=== PATIENT | male | born 1950 | race Caucasian/White ===

== ENCOUNTER 2020-03-30 07:44 | Day surgery (SDC) | payer MEDICARE, OTHER ==
[~2020-03-30] VITALS: Ht 175.3 cm; Wt 113.4 kg
[~2020-03-30 07:44] MED LIST: ASPIR 8181 MG PO; LISINOPRIL-HCT1 EAC2 PO; ROSUVASTATIN CA40 MG PO; TOPROL XL50 MG PO; UNITHROID25 MCG PO
--- NOTE | 2020-03-30 09:53 | NUR ---
03/30/20 0953 Sheets,Lyudmila 0937 PT ARRIVED TO PACU ON 3L VIA NC, PT WAKES EASILY TO VERBAL STIMULI AND DENIES CONCERNS. VSS. RESP EVEN AND UNLABORED. PT ENCOURAGED TO PASS GAS.
--- NOTE | 2020-03-30 11:38 | OR ---
[facility] [address] [place], [place] [address] Signed DATE OF OPERATION: 03/30/2020 SURGEON: Eliezer Howe MD PREOPERATIVE DIAGNOSIS: Sister with colonic polyps at age 71. POSTOPERATIVE DIAGNOSES: 1. A 10 mm polyp mid right colon (snare). 2. A 7 mm polyp at 80 cm. 3. Minimal internal hemorrhoids. PROCEDURE: Colonoscopy, snare polypectomy and hot biopsy. ESTIMATED BLOOD LOSS: None. INDICATIONS: Neville is a 70-year-old gentleman, asked to see me for a followup colonoscopy. We know his sister had colonic polyps removed at age 71. Neville had a negative colonoscopy in 2008. He said he has no lower GI complaints currently. He uses psyllium seed to stay regular. I gave Neville a pamphlet on colonoscopy in the office. He understands the nature of the test along with its risks including, but not limited to gas bloating, crampy abdominal pain, bleeding, perforation requiring surgery, and missed diagnosis. He also understands the need for IV conscious sedation. He had expressed understanding and wished to proceed. DESCRIPTION OF PROCEDURE: Neville was taken into our endoscopy suite and placed in the left lateral decubitus position. He was given IV sedation with 6 mg of Versed and 100 mcg of fentanyl. A digital rectal exam was performed and he does have moderate indurated and enlarged prostate gland. The adult colonoscope was introduced, advanced all around into the cecum under direct visualization of camera without difficulty. His prep was good. We could see the ileocecal valve without difficulties. The scope was slowly withdrawn. The polyp in mid right colon required the snare to divide and suction through the scope. We did see another polyp back at 80 cm, which we removed and destroyed completely with hot biopsy forceps. We saw no diverticula. The rectum was unremarkable. Upon retroflexion of scope, he does have small internal hemorrhoid columns. After this, the gas was suctioned out and the colonoscope removed. Neville tolerated the procedure Electronically Signed By: ELIEZER HOWE MD 03/30/20 1138 PATIENT NAME: NEVILLE CELIS OPERATIVE REPORT DATE OF : 54 REPORT #: [id number] PHYSICIAN: ELIEZER HOWE MD PCP: GAGE JOHNSON DO REPORT IS CONFIDENTIAL AND NOT TO BE RELEASED WITHOUT AUTHORIZATION [address] [address] Signed quite well. RECOMMENDATIONS: I will see Neville back in my office in 7 to 14 days to review his results. Eliezer Howe MD ALB/MODL /[id number] cc: DO Eliezer Zaragoza MD Copies: GAGE JOHNSON ANDREW L MD ~ Electronically Signed By: ELIEZER HOWE MD 03/30/20 1138 PATIENT NAME: NEVILLE CELIS OPERATIVE REPORT DATE OF : 54 REPORT #: [id number] PHYSICIAN: ELIEZER HOWE MD PCP: GAGE JOHNSON DO REPORT IS CONFIDENTIAL AND NOT TO BE RELEASED WITHOUT AUTHORIZATION
--- NOTE | 2020-03-30 13:48 | NUR ---
PT SEEMS ALERT, ORIENTED AND WILL BE PICKED UP BY FRIEND. PT HAS HAD PREVIOUS SCOPES, SEEMS TO BE DEALING WITH PREP WELL. PT REQUESTED PRAYER
--- NOTE | 2020-03-31 15:43 | PATH ---
[facility] [address] [place], [place] [address] Signed SPECIMEN(S): A MID RIGHT POLYP SPECIMEN(S): B COLON POLYP AT 80 CM SPECIMEN SOURCE: A. MID RIGHT POLYP B. COLON POLYP AT 80 CM CLINICAL HISTORY: Follow up colonoscopy for family history polyps. Internal hemorrhoids and colon polyps. MICROSCOPIC DESCRIPTION: Histologic sections of all submitted blocks are examined by light microscopy. These findings, together with the gross examination, support the pathologic diagnosis. FINAL PATHOLOGIC DIAGNOSIS: A. Colon, mid right, polyp, polypectomy: - Fragments of tubular adenoma. - Negative for high-grade dysplasia or malignancy. B. Colon, polyp at 80 cm, polypectomy: - Colonic mucosa with mucosal lymphoid aggregates and significant cautery artifact. - Negative for dysplasia or malignancy. - See Comment. COMMENT: Regarding specimen B: Several additional deeper levels were examined. NAL:cml:C2NR GROSS DESCRIPTION: Two specimens are received in two containers, labeled "BD." A. The specimen, labeled "BD, polyp mid right colon," is received in formalin and consists of four kaye soft tissue fragments that measure 0.3 cm in greatest dimension. The specimen is entirely submitted in cassette (A1). B. The specimen, labeled "BD, 2," and designated on the requisition "colon polyp at 80 cm," is received in formalin and consists of one kaye-brown soft tissue fragment that measures 0.6 cm in greatest dimension. The specimen is entirely submitted in cassette (B1). AT (under the direct supervision of a pathologist) The Gross Description was prepared using a voice recognition system. The PATIENT NAME: NEVILLE CELIS PATHOLOGY DATE OF : 54 REPORT #: [id number] PHYSICIAN: KRYSTYNA BOND PCP: GAGE JOHNSON DO REPORT IS CONFIDENTIAL AND NOT TO BE RELEASED WITHOUT AUTHORIZATION [facility] [address] [place] [address] Signed report was reviewed for accuracy; however, sound-alike word errors, addition and/or deletions may occur. If there is any question about this report, please contact Client Services. PERFORMING LABORATORY: The technical component was [place] [address] ([employer] Estimator: Esther Cardozo MD; CLIA# [id number]). Professional interpretation was performed by [facility], [address] [place] [address] (CLIA# [id number]). Diagnostician: Angela Montes MD Pathologist Electronically Signed 03/31/2020 Copies: ~ PATIENT NAME: NEVILLE CELIS PATHOLOGY DATE OF : 54 REPORT #: [id number] PHYSICIAN: [facility] PCP: GAGE JOHNSON DO REPORT IS CONFIDENTIAL AND NOT TO BE RELEASED WITHOUT AUTHORIZATION
== END 2020-03-30 10:34 | disposition home or self-care (01) ==
LOC: DS 07:44 → OPS 07:44 → DS 09:00 → OPS 10:34
PROVIDERS: Colon & Rectal Surgery
PROC: 0DBE8ZZ Excision of Large Intestine, Via Natural or Artificial Opening Endoscopic (ICD-10-PCS; 2020-03-30)
PROC: 0DBK8ZZ Excision of Ascending Colon, Via Natural or Artificial Opening Endoscopic (ICD-10-PCS; principal; 2020-03-30 09:00)
DX: Z12.11 Encounter for screening for malignant neoplasm of colon (principal); D12.2 Benign neoplasm of ascending colon; K64.8 Other hemorrhoids; I25.10 Atherosclerotic heart disease of native coronary artery without angina pectoris; E78.5 Hyperlipidemia, unspecified; E03.9 Hypothyroidism, unspecified; Z79.899 Other long term (current) drug therapy; Z79.82 Long term (current) use of aspirin; Z88.0 Allergy status to penicillin; Z83.71 Family history of colonic polyps
CPT/HCPCS: 99153; G0500; J2250; J3010; J7121

== ENCOUNTER 2025-08-13 09:25 | Day surgery (SDC) | payer MEDICARE, OTHER ==
[2025-08-06 09:51] VITALS: BP 133/80
[~2025-08-13] VITALS: Ht 172.7 cm; Wt 107.0 kg
[~2025-08-13 09:25] MED LIST changes: +FARXIGA10 MG PO; +IBLOOD GLUCOSE TEST STRIP 1 EA TEST VI PRN; +LACTATED RINGER'S 1,000 ML IV SCH; +LIDOCAINE HCL 1% 5 ML SDV INJ ONE; +METFORMIN HCL500 MG PO
[2025-08-13 09:51] VITALS: BP 134/70
[2025-08-13] MEDS ORDERED: VITAMIN D350 MC3 PO (09:51)
[2025-08-13] MEDS ORDERED: LIDOCAINE HCL 2% 5 ML SDV ONE (10:52)
[2025-08-13 12:18] VITALS: BP 124/68
--- NOTE | 2025-08-13 14:45 | NUR ---
1124- PT ARRIVES IN PACU, LEFT LATERAL POSITION, NON REACTIVE TO STIMULUS. PT SNORING BUT MAINTAINING AIRWAY ON 6L O2 PER MASK. LR INFSUING TO RFA IV. ABD SOFT, NON DISTENDED. ALL MONITORS IN PLACE. 1132- PT WAKES TO TACTILE STIMULUS, REORIENTED TO TIME AND PLACE. ENCOURAGED TO PASS GAS. PT STATES "I WAS HAVING A GOOD DREAM". DENIES PAIN OR NAUSEA. 1134- PT MOVED TO ROOM AIR, PASSING GAS. 1136- PT ROLLED TO BACK INDEPENDENTLY, SAT UP IN BED. 1144- WATER PROVIDED, TOLERATING WELL. PT HAS NO COMPLAINTS. 1150- D/C INSTRUCTIONS EXPLAINED TO PT, VERBALIZED UNDERSTANDING. CALLED FOR RIDE HOME. 1154- PT UP TO SIDE OF BED, TOLERATING WELL. PT TO GET DRESSED. SALINE LOCK REMOVED, TIP INTACT, DRESSING APPLIED. 1158- PT TRANSFERRED TO WHEELCHAIR WITH STEADY GAIT, TAKEN OUT TO FRIENDS CAR WITH ALL BELONGINGS, NO SIGNS OF DISTRESS.
--- NOTE | 2025-08-14 10:00 | OR ---
[facility] [address] [place], [place] [address] Signed DATE OF OPERATION: 08/13/2025 SURGEON: Dylan Mcclure DO PREOPERATIVE DIAGNOSIS: Colon cancer screening. POSTOPERATIVE DIAGNOSES: 1. Colon cancer screening with colon polyps at 120 cm. 2. Colon polyp at 25 cm. PROCEDURE PERFORMED: Colonoscopy with polyp biopsy, cold forceps at 120 cm and 25 cm. ANESTHESIA: IV sedation. ESTIMATED BLOOD LOSS: None. DRAINS: None. COMPLICATIONS: None. DESCRIPTION OF PROCEDURE: The patient was brought to the GI lab and placed in the supine position. After induction of IV sedation, he was placed in left lateral position and padded to the satisfaction of anesthesia. The Olympus video colonoscope was introduced into the rectum and while insufflating and under direct visualization, the colonoscope was then advanced through the rectosigmoid, sigmoid colon, descending colon, transverse colon, ascending colon into the cecum. The colon was insufflated and the mucosal surface was then examined. The scope was then withdrawn and descending colon and cecum had no intrinsic or extrinsic masses. The scope was then brought back past the hepatic flexure into the transverse colon. A small pedunculated polyp was identified. It was grasped with cold biopsy forceps and polypectomy was then carried out, passed off the field for pathologic review. Satisfactory hemostasis was maintained. The scope was then brought back through the remainder of the transverse colon into the splenic flexure and descending colon essentially unremarkable. No intrinsic or extrinsic masses. No Electronically Signed By: DYLAN MCCLURE DO 08/14/25 1000 PATIENT NAME: NEVILLE CELIS OPERATIVE REPORT DATE OF : 54 REPORT #: [id number] PHYSICIAN: DYLAN MCCLURE DO PCP: GAGE JOHNSON DO REPORT IS CONFIDENTIAL AND NOT TO BE RELEASED WITHOUT AUTHORIZATION [facility] [address] [place] [address] Signed lesions or ulcerations were noted. The scope was then brought back into the sigmoid colon. At approximately 25 cm, a flat broad-based polyp was identified. Utilizing cold forceps, multiple biopsies of the polyp was then performed and was passed off the field for pathologic review. Satisfactory hemostasis was maintained. The remainder of the sigmoid and rectosigmoid was unremarkable. Scope was withdrawn. The patient tolerated the procedure well and taken to recovery room in satisfactory condition. Dylan Mcclure DO RS/MODL /[id number] Copies: ~ Electronically Signed By: DYLAN MCCLURE DO 08/14/25 1000 PATIENT NAME: NVEILLE CELIS OPERATIVE REPORT DATE OF : 54 REPORT #: [id number] PHYSICIAN: DYLAN MCCLURE DO PCP: GAGE JOHNSON DO REPORT IS CONFIDENTIAL AND NOT TO BE RELEASED WITHOUT AUTHORIZATION
--- NOTE | 2025-08-18 09:48 | PATH ---
[facility] [address] [place], [place] [address] Signed SPECIMEN(S): A COLON POLYP AT 120 CM SPECIMEN(S): B COLON POLYP AT 25 CM SPECIMEN SOURCE: A. COLON POLYP AT 120 CM B. COLON POLYP AT 25 CM CLINICAL HISTORY: Screening/colon polyps X2 FINAL PATHOLOGIC DIAGNOSIS: A. Colon polyp at 120 cm - Small tubular adenoma. B. Colon polyp at 25 cm - Tubular adenoma. AMB MICROSCOPIC EXAMINATION: Histologic sections of all submitted blocks are examined by light microscopy. These findings, together with the gross examination, support the pathologic diagnosis. GROSS DESCRIPTION: A. The specimen, labeled and designated "[place], colon polyp at 120 cm," is received in formalin and consists of one kaye soft tissue fragment, 0.3 cm. Entirely submitted in (A1). B. The specimen, labeled and designated "[place], colon polyp at 25 cm," is received in formalin and consists of one kaye soft tissue fragment, 0.4 cm. Entirely submitted in (B1). VB (under the direct supervision of a pathologist) The Gross Description was prepared using a voice recognition system. The report was reviewed for accuracy; however, sound-alike word errors, addition and/or deletions may occur. If there is any question about this report, please contact Client Services. ADDITIONAL NOTES: Immunohistochemical and/or in situ hybridization studies if performed in this case included appropriate positive controls that reacted as expected. This test was developed and its performance characteristics determined by [facility]. It has not been cleared or approved by the U.S. Food and Drug Administration. The FDA has determined that PATIENT NAME: NEVILLE ARIAS PATHOLOGY DATE OF : 54 REPORT #: [id number] PHYSICIAN: KRYSTYNA BOND PCP: GAGE JOHNSON DO REPORT IS CONFIDENTIAL AND NOT TO BE RELEASED WITHOUT AUTHORIZATION [facility] [address] [place], [place] [address] Signed such clearance or approval is not necessary. This test is used for clinical purposes. It should not be regarded as investigational or for research. [facility] is certified under the Clinical Laboratory Improvement Amendments of 1988 (CLIA) as qualified to perform high complexity clinical laboratory testing. PERFORMING LABORATORY: Technical component was performed by [facility], [address] [place] [address] (CLIA# [id number]). Professional interpretation was performed by [facility] - [address] [address] [id number] Diagnostician: Esther Cardozo MD Pathologist Electronically Signed 08/18/2025 Copies: ~ PATIENT NAME: NEVILLE ARIAS PATHOLOGY DATE OF : 54 REPORT #: [id number] PHYSICIAN: KRYSTYNA PATHOLOGY PCP: GAGE JOHNSON DO REPORT IS CONFIDENTIAL AND NOT TO BE RELEASED WITHOUT AUTHORIZATION
== END 2025-08-13 11:58 | disposition home or self-care (01) ==
LOC: DS 09:25 → OPS 09:25 → DS 10:30 → OPS 11:58
PROVIDERS: ATTEND Surgery
PROC: 0DBL8ZX Excision of Transverse Colon, Via Natural or Artificial Opening Endoscopic, Diagnostic (ICD-10-PCS; 2025-08-13)
PROC: 0DBN8ZX Excision of Sigmoid Colon, Via Natural or Artificial Opening Endoscopic, Diagnostic (ICD-10-PCS; principal; 2025-08-13 10:30)
DX: Z12.11 Encounter for screening for malignant neoplasm of colon (principal); D12.3 Benign neoplasm of transverse colon; D12.5 Benign neoplasm of sigmoid colon; E11.9 Type 2 diabetes mellitus without complications; I25.10 Atherosclerotic heart disease of native coronary artery without angina pectoris; I10 Essential (primary) hypertension; E78.5 Hyperlipidemia, unspecified; E03.9 Hypothyroidism, unspecified; E66.9 Obesity, unspecified; Z79.899 Other long term (current) drug therapy; Z79.84 Long term (current) use of oral hypoglycemic drugs; Z88.0 Allergy status to penicillin
CPT/HCPCS: 00811; 88305; J2003; J2704; J7121